=== PATIENT | female | born 1975 | race Caucasian/White ===

== ENCOUNTER → 2017-09-10 | Outpatient (CLI) | payer BC | END | disposition home or self-care (01) | LOC: CFH 08:50 | PROVIDERS: ATTEND Obstetrics & Gynecology | DX: Z12.31 Encounter for screening mammogram for malignant neoplasm of breast (principal) | CPT/HCPCS: G0202 ==

== ENCOUNTER → 2019-03-03 | Outpatient (CLI) | payer BC | END | disposition home or self-care (01) | LOC: CFH 08:30 | PROVIDERS: ATTEND Obstetrics & Gynecology | DX: Z12.31 Encounter for screening mammogram for malignant neoplasm of breast (principal) | CPT/HCPCS: 77067 ==

== ENCOUNTER → 2019-03-17 | Outpatient (CLI) | payer BC | END | disposition home or self-care (01) | LOC: CFH 13:19 | PROVIDERS: ATTEND Obstetrics & Gynecology | DX: N64.89 Other specified disorders of breast (principal); N60.02 Solitary cyst of left breast | CPT/HCPCS: 76641; 77065; G0279 ==

== ENCOUNTER → 2020-03-22 | Outpatient (CLI) | payer BC | END | disposition home or self-care (01) | LOC: CFH 11:58 | PROVIDERS: ATTEND Obstetrics & Gynecology | DX: Z12.31 Encounter for screening mammogram for malignant neoplasm of breast (principal) | CPT/HCPCS: 77067 ==

== ENCOUNTER 2020-11-02 13:48 | Outpatient (CLI) | payer BC ==
[2020-11-02] MEDS ORDERED: ESOM20CA PO (14:11)
[2020-11-02] MEDS ORDERED: CETI-158 PO (14:11)
[2020-11-02] MEDS ORDERED: METH500T7 PO (14:11)
[2020-11-02] MEDS ORDERED: RIZA5TAB26 PO (14:11)
[2020-11-02] MEDS ORDERED: CHOL10003 PO (14:11)
[2020-11-02] MEDS ORDERED: ASTA4CAP PO (14:11)
[2020-11-02 15:40] LABS: HCG UR SG 1.039 (1.003-1.030); MICROSCOPIC INDICATED
[2020-11-02 15:46] LABS: BASOPHILS % (AUTO) 1 % (0-1); EOSINOPHILS % (AUTO) 1 % (1-7); LYMPHOCYTES % (AUTO) 31 % (22-44); MEAN CORPUSCULAR HEMOGLOBIN 26.7 pg (27.0-34.8); MEAN CORPUSCULAR HGB CONC 32.7 g/dL (32.4-35.8); MEAN PLATELET VOLUME 9.4 fL (7.4-10.4); MONOCYTES % (AUTO) 8 % (2-9); NEUTROPHILS % (AUTO) 60 % (42-75); PLATELET COUNT 297 x10^3/uL (130-400); RED BLOOD COUNT 4.59 x10^6/uL (3.82-5.3)
[2020-11-02 15:49] LABS: MD NO
== END 2020-11-02 23:59 | disposition home or self-care (01) ==
LOC: STAR 13:48
PROVIDERS: ATTEND Obstetrics & Gynecology
DX: Z01.818 Encounter for other preprocedural examination (principal); R10.2 Pelvic and perineal pain; N81.10 Cystocele, unspecified; N81.6 Rectocele; N94.6 Dysmenorrhea, unspecified
CPT/HCPCS: 36415; 81001; 81025; 85025; 87086; 93005

== ENCOUNTER → 2020-11-09 | Outpatient (CLI) | payer BC, OTHER ==
[~2020-11-09] MED LIST: ASTA4CAP PO; CETI-158 PO; CHOL10003 PO; ESOM20CA PO; METH500T7 PO; RIZA5TAB26 PO
== END | disposition home or self-care (01) ==
LOC: STAR 15:38
PROVIDERS: ATTEND Obstetrics & Gynecology
DX: Z20.828 Contact with and (suspected) exposure to other viral communicable diseases (principal)
CPT/HCPCS: 87635

== ENCOUNTER 2020-11-15 05:37 | Day surgery (SDC) | payer BC ==
[~2020-11-15] VITALS: Ht 172.7 cm; Wt 74.2 kg
[~2020-11-15 05:37] MED LIST changes: +DIAZEPAM 5 MG TABLET ONE
[2020-11-15] MEDS ORDERED: LIDOCAINE-MPF 1%, 2ML INFIL ONE (06:30)
[2020-11-15] MEDS ORDERED: LIDOCAINE-MPF 1%, 2ML ONE (06:30)
[2020-11-15] MEDS ORDERED: LACTATED RINGERS 1,000 ML IV SCH (06:30)
[2020-11-15] MEDS ORDERED: ACETAMINOPHEN 500 MG TABLET PO ONE (06:30)
[2020-11-15] MEDS ORDERED: CHLORHEXIDINE 15 ML UDC MM ONE (06:30)
[2020-11-15] MEDS ORDERED: CHLORHEXIDINE 15 ML UDC ONE ×2 (06:30→06:31)
[2020-11-15 06:44] LABS: HCG UR SG 1.005 (1.003-1.030)
[2020-11-15] MEDS ORDERED: MIDAZOLAM 1 MG/ML, 2ML ONE (07:11)
[2020-11-15] MEDS ORDERED: FENTANYL PF 250 MCG/5ML ONE (07:12)
[2020-11-15] MEDS ORDERED: PROPOFOL 100 ML ONE ×2 (07:15→08:34)
[2020-11-15] MEDS ORDERED: FLUORESCEIN SODIUM 500 MG/5 ML ONE (07:19)
[2020-11-15] MEDS ORDERED: BUPIVACAINE/PF 0.25% ONE (07:19)
[2020-11-15] MEDS ORDERED: EPINEPHRINE 1 MG/ML, 1ML ONE (07:19)
[2020-11-15] MEDS ORDERED: KETAMINE 10 MG/ML, 20ML ONE (07:27)
[2020-11-15] MEDS ORDERED: HYDR-1067 PO (07:29)
[2020-11-15] MEDS ORDERED: OXYcodone 5 MG/5 ML ORAL.SOL UDC PO PRN (08:00)
[2020-11-15] MEDS ORDERED: FENTANYL PF 100 MCG/2ML IV PRN (08:00)
[2020-11-15] MEDS ORDERED: MEPERIDINE/PF 25MG/0.5ML IVPush PRN (08:00)
[2020-11-15] MEDS ORDERED: ONDANSETRON 2MG/ML, 2ML IVPush PRN (08:00)
[2020-11-15] MEDS ORDERED: HYDROmorphone 1 MG/ML, 1ML INJ IVPush PRN (08:00)
[2020-11-15] MEDS ORDERED: HALOPERIDOL 5 MG/ML IV PRN (08:00)
[2020-11-15] MEDS ORDERED: DIPHENHYDRAMINE 50 MG/ML, 1ML IM PRN (08:00)
[2020-11-15] MEDS ORDERED: LORazepam 2 MG/ML, 1ML IVPush PRN (08:00)
[2020-11-15] MEDS ORDERED: ACETAMINOPHEN 325 MG TABLET PO PRN (08:00)
[2020-11-15] MEDS ORDERED: SUGAMMADEX 200 MG/2 ML IVPush ONE (08:43)
[2020-11-15] MEDS ORDERED: GLYCOPYRROLATE 0.2MG/1ML, 5ML ONE (08:43)
[2020-11-15] MEDS ORDERED: PROPOFOL 10 MG/ML, 20ML ONE (08:43)
[2020-11-15] MEDS ORDERED: ROCURONIUM 10MG/ML,5ML ONE (08:43)
[2020-11-15] MEDS ORDERED: DEXAMETHASONE 4 MG/ML, 5ML ONE ×2 (08:43)
[2020-11-15] MEDS ORDERED: SUCCINYLCHOLINE 20 MG/ML, 10ML ONE (08:43)
[2020-11-15] MEDS ORDERED: CEFAZOLIN 1,000 MG ONE (08:43)
[2020-11-15] MEDS ORDERED: ONDANSETRON 2MG/ML, 2ML ONE (08:43)
[2020-11-15] MEDS ORDERED: NEOSTIGMINE 1 MG/ML, 10ML ONE (08:43)
[2020-11-15] MEDS ORDERED: ESTROGENS CONJUGATED VAG CRM 0.625MG/1G, 30GM ONE (09:30)
[2020-11-15] MEDS ORDERED: LIDOCAINE-MPF 2% ,5ML ONE ×3 (11:34)
[2020-11-15 12:10] LABS: BASOPHILS % (AUTO) 0 % (0-1); EOSINOPHILS % (AUTO) 0 % (1-7); LYMPHOCYTES % (AUTO) 5 % (22-44); MEAN CORPUSCULAR HEMOGLOBIN 26.2 pg (27.0-34.8); MEAN CORPUSCULAR HGB CONC 32.7 g/dL (32.4-35.8); MEAN PLATELET VOLUME 8.7 fL (7.4-10.4); MONOCYTES % (AUTO) 2 % (2-9); NEUTROPHILS % (AUTO) 93 % (42-75); PLATELET COUNT 244 x10^3/uL (130-400); RED CELL DISTRIBUTION WIDTH 13.8 % (9.6-15.2)
[2020-11-15 12:12] LABS: MD NO
[2020-11-15] MEDS ORDERED: KEFLEX 500 MG PO (12:16)
[2020-11-15] MEDS ORDERED: KETOROLAC 30 MG/1 ML IVPush PRN (14:00)
[2020-11-15] MEDS ORDERED: KETOROLAC 30 MG/1 ML ONE (14:03)
== END 2020-11-15 15:30 | disposition home or self-care (01) ==
LOC: OUT 05:37
PROVIDERS: ATTEND Obstetrics & Gynecology
DX: N81.6 Rectocele (principal); N83.8 Other noninflammatory disorders of ovary, fallopian tube and broad ligament; N81.10 Cystocele, unspecified; K21.9 Gastro-esophageal reflux disease without esophagitis; G43.909 Migraine, unspecified, not intractable, without status migrainosus; Z88.8 Allergy status to other drugs, medicaments and biological substances; Z79.899 Other long term (current) drug therapy; Z72.89 Other problems related to lifestyle; Z98.890 Other specified postprocedural states; Z82.49 Family history of ischemic heart disease and other diseases of the circulatory system; Z83.3 Family history of diabetes mellitus
CPT/HCPCS: 36415; 57265; 58552; 81025; 85025; 86850; 86900; 88307; J0171; J0690; J1100; J1885; J2250; J2405; J2704; J3010; J2710; J0330

== ENCOUNTER → 2021-06-07 | Outpatient (CLI) | payer BC ==
[~2021-06-07] MED LIST changes: -DIAZEPAM 5 MG TABLET ONE; +HYDR-2214 PO; +KEFLEX 500 MG PO; +METH-639 PO; -METH500T7 PO; +RIZA5TAB13 PO; -RIZA5TAB26 PO
== END | disposition home or self-care (01) ==
LOC: CFH 09:39
PROVIDERS: ATTEND Obstetrics & Gynecology
DX: Z12.31 Encounter for screening mammogram for malignant neoplasm of breast (principal)
CPT/HCPCS: 77063; 77067